=== PATIENT | female | born 1955 | race Caucasian/White ===

== ENCOUNTER 2021-12-18 07:44 | Emergency (ER) | payer MEDICARE, OTHER ==
[2021-12-18 07:54] VITALS: BP 108/80
[2021-12-18] MEDS ORDERED: lidocaine 1% 20 ML MDV SUBQ ONE (07:59)
[2021-12-18] MEDS ORDERED: BACITRACIN ZINC OINT 1 PACKET TOP STA (08:28)
--- NOTE | 2021-12-18 08:31 | ED Physician Documentation ---
PD HPI HEAD INJURY - Stated complaint Stated Complaint: R EYE LAC - Chief complaint Chief Complaint: Laceration - History obtained from History obtained from: Patient - Additional information Additional information: The patient comes to the emergency department chief complaint of right face laceration after ground-level fall. Patient states she was out watering her plants in the garden this morning when she tripped on the hose and fell, striking the side of her face on a rock. Patient states she did not lose consciousness. She denies any headache or neurologic symptoms. No other injuries whatsoever. Patient is not anticoagulated. She noticed a bleeding wound just above her right eye where she had hit the rock. The patient denies any visual changes. She believes her last tetanus shot has been within the last 10 years. No other complaints at this time. Review of Systems Ten Systems: 10 systems reviewed and negative Constitutional: reports: Reviewed and negative Eyes: reports: Reviewed and negative Ears: reports: Reviewed and negative Nose: reports: Reviewed and negative Throat: reports: Reviewed and negative Cardiac: reports: Reviewed and negative Respiratory: reports: Reviewed and negative GI: reports: Reviewed and negative : reports: Reviewed and negative Skin: reports: Laceration (s) Musculoskeletal: reports: Reviewed and negative Neurologic: reports: Head injury. denies: Headache, LOC Psychiatric: reports: Reviewed and negative Endocrine: reports: Reviewed and negative Immunocompromised: reports: Reviewed and negative PD PAST MEDICAL HISTORY - Present Medications Home Medications: Ambulatory Orders Medication Instructions Recorded Confirmed Aspirin EC [Ecotrin] 81 mg PO DAILY 12/18/21 12/18/21 Estrogens, Conjugated [Premarin] 0.45 mg ORAL DAILY 12/18/21 12/18/21 Levothyroxine Sodium 50 mcg PO DAILY 12/18/21 12/18/21 [Levothyroxine] Rosuvastatin Calcium [Crestor] 10 mg PO HS 12/18/21 12/18/21 - Allergies Allergies/Adverse Reactions: Allergies Allergy/AdvReac Type Severity Reaction Status Date / Time propoxyphene [From Darvon] AdvReac Emesis Verified 12/18/21 07:50 PD ED PE NORMAL - Vitals Vital signs reviewed: Yes - General General: Alert and oriented X 3, No acute distress, Well developed/nourished - HEENT HEENT: PERRL, EOMI, Moist mucous membranes, Other (1.5 cm laceration at lateralmost aspect of right upper eyelid, overlying orbital rim. No ocular trauma. No bony deformity. Mild edema and contusion immediately around wound.) - Neck Neck: Supple, no meningeal sign - Respiratory Respiratory: No respiratory distress - Derm Derm: Normal color, Warm and dry, No rash, Other (Laceration to face as above) - Extremities Extremities: No deformity, Normal ROM s pain - Neuro Neuro: Alert and oriented X 3, informatica architect 2-12 intact, Normal speech, Other (Grossly intact) - Psych Psych: Normal mood, Normal affect Results - Vitals Vitals: Vital Signs - 24 hr 12/18/21 07:51 Temperature 37.0 C Heart Rate 70 Respiratory 19 Rate Blood Pressure 108/80 O2 Saturation 100 Oxygen O2 Source Room air Procedures - Laceration (location) Right face Length in cm: 1.5 Wound type: Linear, Into subcut fat, Clean Neurovascular status: Sensory intact, Motor intact, Vascular intact Anesthesia: Lidocaine 1% Wound preparation: Betadine, Irrigated copiously NS, Wound explored, To the base Skin layer closure: Nylon, Interrupted, Size #-0 - enter number (5.0), Sutures - enter # (3) Other: Patient tolerated well, No complications, Neurovascular intact, Tetanus UTD, Other (Bacitracin applied) PD MEDICAL DECISION MAKING - ED course Complexity details: considered differential, d/w patient ED course: The patient was up-to-date on tetanus. Her wound was repaired as above and bacitracin applied. We have discussed principles of wound care at home, the need for wound recheck and likely suture removal in 5 days, and the usual indications for sooner return. Departure - Departure Disposition: 01 Home, Self Care Clinical Impression: Laceration Condition: Stable Instructions: ED Laceration Facial Sutr Tape Comments: Your wound has been repaired with 3 synthetic sutures today. You should have the wound rechecked and sutures removed in 5 days at either urgent care, walk-in clinic, or your doctors office. If you cannot be seen in any of these settings, you may return to the emergency department. As long as the sutures are in, you should generally keep the wound clean and dry. You may allow water and soap to run over the wound, but please do not rub, scrub, or immerse the wound during this time. This is to avoid developing infection. In general, infection of the surgical wounds is very rare, as the repair is done sterilely; however, if you begin to notice redness and swelling spreading progressively away from the wound, or if you notice that the formally dry wound has become "mushy" and has split open, you should have it rechecked. You have some bruising around the cut which will most likely track around your eye and down your cheek. This will clear on its own. Discharge Date/Time: 12/18/21 08:33
== END 2021-12-18 08:33 | disposition home or self-care (01) ==
LOC: ED 07:44
DX: S01.111A Laceration without foreign body of right eyelid and periocular area, initial encounter (principal); W01.198A Fall on same level from slipping, tripping and stumbling with subsequent striking against other object, initial encounter
CPT/HCPCS: 12011; 99281; A9270